=== PATIENT | male | born 1985 | race Caucasian/White ===

== ENCOUNTER → 2018-11-16 13:55 | Outpatient (CLI) | payer OTHER, SELFPAY | PROVIDERS: Referring Provider Obstetrics & Gynecology; Visit Provider Obstetrics & Gynecology | DX: Z31.440 Encounter of male for testing for genetic disease carrier status for procreative management (principal) | CPT/HCPCS: 36415 ==

== ENCOUNTER → 2020-07-02 12:33 | Outpatient (CLI) | payer OTHER, SELFPAY ==
--- NOTE | 2020-07-02 | LES_PTH ---
PATIENT: ALBERTO ROBERSON LOC: [facility] U#:[id number] AGE/SX: 39/M ROOM: RE07/02/[address]: Dr. Thierry Little DDS : 1985 BED: DIS: SPEC #: [id number] RECD: 07/02/20 12:00 STATUS: DAVID JAX #: [id number] GENIE: 07/02/20 00:[address]: Thierry Little DEPT: SURGICAL PATHOLOGY RECD BY: Opal Rhodes ENTERED: 07/02/20 13:07 SP TYPE: Lesion OTHR DR: No Primary Care Phys Tissues: Skin of lip, NOS Procedures: Surgery Specimen Level IV HEADER OPERATION: Biopsy lower lip PRE-OP DIAGNOSIS: Mucocele lower lip TISSUE SUBMITTED: Mucocele lower lip MICROSCOPIC DIAGNOSIS Mucocele lower lip, biopsy: Consistent with ruptured mucocele with associated acute and chronic inflammation and reactive changes. Focal parakeratosis. SJ:lennie 07/03/2020 MICROSCOPIC DESCRIPTION Slides are reviewed. GROSS DESCRIPTION Received in fixative is one container labeled with the patient's name and designated lip. The specimen consists of a piece of guerra mucosal tissue measuring 0.5 x 0.6 x 0.4 cm. The specimen is inked, bisected and submitted entirely in one cassette. / SJ:rg 07/02/20 TC:5 CPT: 48185
== END ==
PROVIDERS: Visit Provider Dentist Oral and Maxillofacial Surgery
DX: R23.4 Changes in skin texture (principal)
CPT/HCPCS: 88305

== ENCOUNTER 2023-11-25 10:13 | Emergency (ER) | payer OTHER, SELFPAY ==
[2023-11-25 10:13] VITALS: BP 118/88; PULSE 88; RESP 14; TEMP 37.1; O2SAT 95; BMI 36.3
[2023-11-25] MEDS: Ketorolac 30 MG/ML Syringe IM (11:04)
[2023-11-25] MEDS: Gabapentin 300 MG Capsule PO (11:05)
--- NOTE | 2023-11-25 11:21 | ED.RN ---
FAMILY UP TO RN TELEPHONIC-REQUESTS TO TALK TO PHYSICIAN. FAMILY STATES THEY DO NOT UNDERSTAND WHY WE ARE DOING A X-RAY IF THIS MUSKOSKELETAL. REQUESTS PHYSICIAN
--- NOTE | 2023-11-25 11:38 | RAD_ITS ---
STUDY: X-RAY - CERVICAL SPINE REASON FOR EXAM: Male, 38 years old. cervical radiculopathy -- c7 NECK PAIN THAT RADIATES INTO RIGHT ARM, NKI TECHNIQUE: 4 view(s) of the cervical spine were obtained. COMPARISON: None FINDINGS: Normal anterior atlantoaxial articulation. Normal odontoid process. Normal cervical lordosis. Normal vertebral bodies and endplates. Normal disc space heights. No visualized fracture or compression deformity. The soft tissue structures are unremarkable. RAD/Cerv Spine 2 or 3 Views IMPRESSION: Negative x-ray examination of the visualized cervical spine. Electronically Signed: Alexander Hathaway MD at 12:09 EDT ,
--- NOTE | 2023-11-25 11:59 | EDS_ITS ---
HPI History of Present Illness Chief Complaint: Upper Extremity Injury Informant: patient and spouse/S.O. Narrative Narrative: Worsening pain right neck rating down to the back of his elbow and upper back region over 3 days. Denies trauma. Denies weakness. Patient has had similar symptoms in the past self-limiting. Took Advil yesterday evening. He does not follow her doctor per spouse. [facility], Stated he had a low-grade fever due to his pain was sent to the ED for evaluation and full workup. Prior similar symptoms: Yes PFSH PFSH Home Medications ?Medication ?Instructions ?Recorded ?Last Taken ?Type gabapentin 300 mg capsule 300 mg PO QHS #30 caps 11/25/23 Unknown Rx ibuprofen 600 mg tablet 600 mg PO Q6H PRN PRN pain #20 11/25/23 Unknown Rx TABLETS oxycodone-acetaminophen 5 mg-325 1 tab PO Q6H PRN PRN Pain 3 days 11/25/23 Unknown Rx mg tablet #12 TABLETS Allergy/AdvReac Type Severity Reaction Status Date / Time No Known Allergies Allergy Verified 11/25/23 10:13 Social History Smoking Status: Never smoker ROS ROS ED Constitutional Constitutional ED: Denies chills, fever(s) or sweats Eyes Eyes: Denies change in vision ENT ENT ED: Denies dysphagia or sore throat Cardiovascular Cardiovascular: Denies chest pain, leg edema, palpitations or racing heartbeat Respiratory/Chest Respiratory/Chest: Denies cough, dyspnea or dyspnea on exertion Gastrointestinal Gastrointestinal: Denies abdominal pain, diarrhea, nausea or vomiting Genitourinary Genitourinary ED: Denies dysuria, hematuria or urinary frequency Musculoskeletal Musculoskeletal: Reports back pain and neck pain; Denies extremity pain Integumentary Denies rash or wounds Neurologic Neurologic: Denies headache(s), paresthesias or weakness EXAM Physical Exam Const Vital Signs: 11/25/23 10:13 Temperature 98.8 F Temperature Source Oral Pulse Rate 88 Respiratory Rate 14 Blood Pressure 118/88 H Blood Pressure Mean 98 Pulse Ox 95 Oxygen Delivery Method Room Air Positive well nourished and well developed Constitutional Narrative: Nontoxic uncomfortable General Appearance ED: well developed HEENT Reports moist mucous membranes normocephalic and atraumatic Eyes EOMs intact bilaterally and conjunctivae normal General Eye ED: Yes normal appearance of both eyes Neck full ROM, no lymphadenopathy and supple Neck Narrative: Positive Spurling test to the right, improving symptoms when sidebent flexion to the left. General: Negative for tenderness Chest Wall Chest: Negative for tenderness Resp normal respiratory effort and normal air movement Effort and Inspection: symmetric chest movement; Negative for respiratory distress Cardio regular rate, regular rhythm and no murmurs Peripheral Pulses: pulses 2+ throughout GI normal to inspection, nondistended, normoactive bowel sounds and non-tender Palpation: Negative for guarding or rebound tenderness present Back/Spine no CVA tenderness and no thoracic nor lumbar tenderness Extremity normal to inspection Extremity Narrative: Strength upper extremities at shoulder abduction and elbow flexion extension and 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 Soft compartments. General Extremety ED: Negative for edema or tenderness General Extremity: Negative for edema Neuro oriented x3 and no sensory deficits noted Sensorium / Orientation: awake and alert Skin no rashes or lesions noted and no wounds MDM MDM MDM Narrative Medical decision making narrative: Interventions / MDM: Differential diagnosis: Cervical radiculopathy Diagnosis considered but do not suspect: N/A My EKG interpretation: N/A Imaging independently reviewed and interpreted by myself: Cervical x-ray 3 views: No acute process. External documents reviewed: N/A Test considered but not ordered:N/A ED course: Patient presenting with cervical radiculopathy reproduced with Spurling's test. He is treated with gabapentin and Toradol in the ED. Cervical x-ray films ordered. Spouse expressing they were told have a full workup in the ED. I discussed with them reproducible findings with Spurling test with cervical radiculopathy. He has no weakness. Discussed images of choice would be MRI for nerve evaluation however this would not be emergently indicated for approval. He has not seen a PCP in a while, they were told diabetes he got neuropathy symptoms. Discussed not likely diabetic neuropathy I offered baseline labs however full panel workups would be done as an outpatient with blood work and screening. She understands this. They also reported he was told a low-grade temperature in the ED. No cough or urinary symptoms. She was concern for potential early virus with COVID or influenza. This was ordered for further evaluation. 1250: Clinically feeling better on reevaluation. X-ray confirmed with radiology negative. COVID, influenza, RSV negative. Patient is here mother more reassured. Prescription for Motrin gabapentin and short course of Percocet for symptom control. Outpatient follow-up with pain management given. Re-evaluation: stable Disposition discussed with patient/family/significant other: Patient and significant other Case discussed with consulting clinician: [facility] mariela carrillo, George Maya This note was generated with [employer] dictation software. It may contain incorrect words, spelling, and punctuation that were not noted in checking the note before signing. Discharge Plan Triage Chief Complaint: Upper Extremity Injury ED Provider: Isaiah Lew Dx/Rx/DC Orders Clinical Impression: Cervical radiculopathy at C7, Neck pain Instructions: Cervical Radiculopathy Prescriptions: New oxycodone-acetaminophen 5-325 mg tablet 1 tab PO Q6H PRN PRN (Reason: Pain) 3 Days Qty: 12 0RF gabapentin 300 mg capsule 300 mg PO QHS Qty: 30 0RF ibuprofen 600 mg tablet 600 mg PO Q6H PRN PRN (Reason: pain) Qty: 20 0RF Primary Care Provider: Care Physician,No Primary Referrals: Leigh Ann Westfall MD [Med Staff - Active Staff] - 3-5 Days if not improving Care Physician,No Primary [Primary Care Provider] - Activity Restrictions/Additional Instructions: Cervical x-ray normal. Symptoms consistent with right sided cervical radiculopathy C7 region. Take medications as prescribed. Follow-up with Dr. Westfall. Print Language: Turkish Disposition Disposition: Home, Self Care Discharge Date/Time: 11/25/23 13:10
[2023-11-25 12:13] VITALS: BP 146/85; PULSE 66; RESP 14; O2SAT 99
[2023-11-25 13:09] VITALS: BP 117/69; PULSE 81; RESP 16; TEMP 36.4; O2SAT 92
== END 2023-11-25 13:10 | disposition home or self-care (01) ==
PROVIDERS: Emergency Provider Emergency Medicine; Visit Provider Emergency Medicine
DX: M54.12 Radiculopathy, cervical region (principal); R50.9 Fever, unspecified
CPT/HCPCS: 72040; 87631; 96372; 99282